=== PATIENT | female | born 1950 ===

== ENCOUNTER 2017-12-15 02:04 | Outpatient (CLI) | payer MEDICARE, OTHER | END 2017-12-15 23:59 | disposition home or self-care (01) | LOC: DIABETIC 02:04 | PROVIDERS: ATTEND Specialist | DX: E11.65 Type 2 diabetes mellitus with hyperglycemia (principal); Z79.82 Long term (current) use of aspirin; Z79.899 Other long term (current) drug therapy; Z88.5 Allergy status to narcotic agent | CPT/HCPCS: G0108 ==

== ENCOUNTER 2018-03-15 02:29 | Outpatient (CLI) | payer MEDICARE, OTHER | END 2018-03-15 23:59 | disposition home or self-care (01) | LOC: DIABETIC 02:29 | PROVIDERS: ATTEND Specialist | DX: E11.65 Type 2 diabetes mellitus with hyperglycemia (principal); Z79.82 Long term (current) use of aspirin; Z79.84 Long term (current) use of oral hypoglycemic drugs; Z88.5 Allergy status to narcotic agent | CPT/HCPCS: G0108 ==